=== PATIENT | female | born 1975 | race Caucasian/White ===

== ENCOUNTER 2025-09-15 14:26 | Emergency (ER) | payer MEDICAID ==
[~2025-09-15] VITALS: Ht 170.2 cm; Wt 79.5 kg
[2025-09-15 14:40] VITALS: BP 150/90; PULSE 89; RESP 16; TEMP 98; O2SAT 97
[2025-09-15] MEDS ORDERED: ESCI20TA PO (16:18)
[2025-09-15] MEDS ORDERED: buprenorphine/naloxone 8MG-2MG SUBlingual film SL SCH (16:20)
--- NOTE | 2025-09-15 16:20 | Physician Documentation ---
HPI ~ General Chief Complaint: Medication Refill Stated Complaint: MED REFILL Time Seen by MD: 14:53 Primary Medical Doctor: REED History of Present Illness HPI Comments Patient is a 50-year-old female that presents to the emergency department for medication refill. Patient reports that she is here supporting her mom who is currently going through cancer treatment. Patient reports that she currently takes Lexapro and Suboxone. We will refill the patient's Lexapro for 30 days. We will give the patient 1 dose of Suboxone here in the emergency department. She will need to follow up with a primary care provider to refill her prescribe her Suboxone prescription. Medication Reconciliation Allergies: Coded Allergies: No Known Allergies (Unverified , 10/18/11) Past Medical History Past Medical History: Anxiety, Depression Past Surgical History: other Alcohol Use: Occasionally Drug Use: none Lives with: Family Lives In: Home Occupation: unemployed Review of Systems ROS As stated above in the HPI, otherwise all systems are reviewed and negative. Physical Exam Physical Exam Vital Signs: Temperature: 98.0, Heart Rate: 89, Respiratory Rate: 16, BP: 150/90, Pulse Oximetry: 97, Weight: 79.550 Oxygen Flow Rate: 0 Physical Exam VITALS: Reviewed and as above. GENERAL: Alert, no apparent distress. PSYCH: Normal mood and affect, no agitation Progress Results/Orders Results/Orders Vital Signs 09/15/25 14:40 Temp 98.0 Pulse 89 Resp 16 B/P (MAP) 150/90 Pulse Ox 97 O2 Flow Rate 0 Medical Decision Making Additional information obtaine: other Findings Patient is a 50-year-old female that presents to the emergency department for medication refill. Patient reports that she is here supporting her mom who is currently going through cancer treatment. Patient reports that she currently takes Lexapro and Suboxone. We will refill the patient's Lexapro for 30 days. We will give the patient 1 dose of Suboxone here in the emergency department. She will need to follow up with a primary care provider to refill her prescribe her Suboxone prescription. Differential Dx:Considerations: Include: Adverse circumstances, Economic, Ps ychosocial, Medical services unavail., Medication refill, Medication non- compliance, Other Departure Disposition: 01 HOME / SELF CARE / HOMELESS Impression: Primary Impression: General medical exam Additional Impression: Medication refill Discharge Instructions: Medicine Refill at the Emergency Department Additional Instructions: Patient is a 50-year-old female that presents to the emergency department for medication refill. Patient reports that she is here supporting her mom who is currently going through cancer treatment. Patient reports that she currently takes Lexapro and Suboxone. We will refill the patient's Lexapro for 30 days. We will give the patient 1 dose of Suboxone here in the emergency department. She will need to follow up with a primary care provider to refill her prescribe her Suboxone prescription. Patient reports that she takes 20 mg of Lexapro twice daily. This dosing was confirmed with the patient. She states that she has taken Lexapro for over 20 years and takes 20 mg twice daily. Referrals: NO PRIMARY CARE PROVIDER (PCP) Prescriptions Escitalopram Oxalate (Lexapro) 20 Mg Tablet 1 TAB PO BID for 30 Days, #60 TAB 0 Refills Prov: KESHA QUEEN 09/15/25 Education Educated: Patient Educated regarding: diagnosis, treatment, need for follow up Signature Scribe Signature: A Attestation: Scribed for Kesha Queen by ANJEL Koch . 09/15/25 16:20 KESHA QUEEN Sep 15, 2025 16:20
== END 2025-09-15 17:31 | disposition home or self-care (01) ==
LOC: ER 14:26
DX: Z00.00 Encounter for general adult medical examination without abnormal findings (principal); Z76.0 Encounter for issue of repeat prescription; F41.9 Anxiety disorder, unspecified; F32.A Depression, unspecified
CPT/HCPCS: 99282